=== PATIENT | male | born 1960 | race Caucasian/White ===

== ENCOUNTER 2020-12-22 01:55 | Emergency (ER) | payer OTHER ==
--- OUTSIDE RECORDS SUMMARY | 2020-12-22 01:57 | XMS REPORT | Continuity of Care Document ---
:1960 Author Organization [facility] t Address [address] [place] [address] Care Team Providers Name Role Phone Gamaliel MURRAY Primary Care Physician Problems This patient has no known problems. Allergies, Adverse Reactions, Alerts This patient has no known allergies or adverse reactions. Social History Social Habit Start Date Stop Date Quantity Comments Source Sex Assigned At [birth year] [facility] ethodist 00:00:00 00:00:00 Medications This patient has no known medications. Procedures This patient has no known procedures. Plan of Care Planned Activity Planned Date Details Comments Source Future Scheduled 2021-02-02 INFLUENZA VACCINE [place] [facility] 00:00:00 [code = INFLUENZA VACCINE] Future Scheduled 2008 COLONOSCOPY SCREENING [place] [facility] 00:00:00 [code = COLONOSCOPY SCREENING] Future Scheduled 2008 SHINGLES VACCINES [place] [facility] 00:00:00 (#1) [code = SHINGLES VACCINES (#1)] Future Scheduled 1976 Hepatitis C screening [place] [facility] 00:00:00 (procedure) [code = 886179859] Future Scheduled 1970 COVID-19 VACCINE (1) [facility] 00:00:00 [code = COVID-19 VACCINE (1)] Encounters Start End Encounter Admission Attending Care Care Encounter Source Date/Time Date/Time Type Type Clinicians Facility Department ID 2020-10-16 2020-10-16 Outpatient [facility] [id number] [facility]00 [facility] 2020-09-16 2020-09-16 Outpatient [facility] [id number] [facility]00 [facility] 2020-09-11 2020-09-11 Outpatient [facility] [id number] [facility]00 [facility] Results This patient has no known results.
[2020-12-22 02:45] LABS: Urine Blood Negative (Negative); Urine Glucose Negative (Negative); Urine Protein 1+ (Negative); Urine Specific Gravity >=1.030 (1.005-1.030)
[2020-12-22 03:02] LABS: Basophils % 0.4 % (0-1.3); Hematocrit 45.5 % (39.6-49.0); Lymphocytes % 12.8 % (15.3-44.8); MPV 9.7 fL (7.6-11.3); RBC Red Blood Cell Count 4.73 M/uL (4.33-5.43)
[2020-12-22] MEDS ORDERED: MORPHINE 4 MG/ML SYR ONE ×2 (03:04→03:47)
[2020-12-22] MEDS ORDERED: ONDANSETRON 4 MG/2 ML VIAL ONE (03:05)
[2020-12-22 03:22] LABS: Albumin 4.1 g/dL (3.4-5.0); Bilirubin Direct 0.2 mg/dL (0-0.2); Bilirubin Total 0.5 mg/dL (0.2-1.0); Potassium 4.3 mmol/L (3.5-5.1); Protein, Total 7.9 g/dL (6.4-8.2)
--- NOTE | 2020-12-22 04:42 | ER ---
Nurse's Notes [facility] Name: Ken Mari Age: 60 yrs Sex: Male : 1960 Arrival Date: 12/22/2020 Time: 01:57 Bed 19 Private MD: Zak Alston Diagnosis: Ureterolithiasis, Left Presentation: 12/22 02:17 Chief complaint: Patient states: left sided back pain that started about 2 hours ago, em radiates into abdomen, also reports urinary frequency with only drops coming out, denies blood in urine. Coronavirus screen: Client denies travel out of the [place] in the last 14 days. Ebola Screen: Patient negative for fever greater than or equal to 101.5 degrees Fahrenheit, and additional compatible Ebola Virus Disease symptoms Patient denies exposure to infectious person. Patient denies travel to an Ebola-affected area in the 21 days before illness onset. No symptoms or risks identified at this time. Initial Sepsis Screen: Does the patient meet any 2 criteria? No. Patient's initial sepsis screen is negative. Does the patient have a suspected source of infection? No. Patient's initial sepsis screen is negative. Risk Assessment: Do you want to hurt yourself or someone else? Patient reports no desire to harm self or others. Onset of symptoms was December 22, 2020. 02:17 Method Of Arrival: Ambulatory em 02:17 Acuity: TERA 3 em Triage Assessment: 02:41 General: Behavior is calm, cooperative. Musculoskeletal: No deficits noted. 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 - Social history:: Smoking status: Patient denies any tobacco usage or history of. Screenin:17 Abuse screen: Denies threats or abuse. Nutritional screening: No deficits noted. em Tuberculosis screening: No symptoms or risk factors identified. Fall Risk None identified. Assessment: 02:40 General: Appears in no apparent distress. Pain: Complains of pain in back and abdomen. ak2 Neuro: Level of Consciousness is awake, alert, obeys commands, Oriented to person, place, time. Cardiovascular: No deficits noted. Respiratory: No deficits noted. 03:22 Reassessment: states morphine barely helped, rates pain 9/10, Dr. Arora notified, em received VO to repeat pain medication. 04:03 Reassessment: Patient appears in no apparent distress at this time. Patient and/or em family updated on plan of care and expected duration. Pain level reassessed. Patient is alert, oriented x 3, equal unlabored respirations, skin warm/dry/pink. rates pain 3/10 Patient states feeling better. Patient states symptoms have improved. Vital Signs: 02:17 BP 159 / 99; Pulse 77; Resp 18; Temp 97.2; Pulse Ox 99% on R/A; Weight 120.2 kg; Height em 6 ft. 2 in. (187.96 cm); Pain 8/10; 03:20 BP 149 / 89; Pulse 69; Resp 18; Pulse Ox 97% on R/A; Pain 9/10; em 04:11 BP 147 / 89; Pulse 65; Resp 16; Pulse Ox 95% on R/A; Pain 3/10; em 02:17 Body Mass Index 34.02 (120.20 kg, 187.96 cm) em ED Course: 01:57 Patient arrived in ED. am4 01:58 Zak Alston MD is Private Physician. am4 02:17 Bhargav Crocker, RN is Primary Nurse. em 02:17 Patient has correct armband on for positive identification. Adult w/ patient. Pulse ox em on. NIBP on. 02:18 Kosta Arora MD is Attending Physician. 7 02:19 Triage completed. em 02:19 Arm band placed on. em 02:40 No provider procedures requiring assistance completed. Inserted saline lock: 20 gauge ak2 in right antecubital area, using aseptic technique. 03:35 Stone Protocol In Process Unspecified. EDMS 04:41 Brien Sow MD is Referral Physician. mh7 04:59 IV discontinued, intact, bleeding controlled, No redness/swelling at site. Pressure em dressing applied. Administered Medications: 02:48 Drug: morphine 4 mg Route: IVP; Site: right antecubital; ak2 03:20 Follow up: Response: No adverse reaction; Marked relief of symptoms; RASS: Alert and em Calm (0) 02:48 Drug: Zofran (Ondansetron) 4 mg Route: IVP; Site: right antecubital; ak2 03:20 Follow up: Response: No adverse reaction em 02:49 Drug: NS 0.9% 1000 ml Route: IV; Rate: 1000 ml; Site: right antecubital; ak2 05:00 Follow up: IV Status: Completed infusion; IV Intake: 1000ml em 03:24 Drug: morphine 4 mg Route: IVP; Site: right antecubital; em 04:10 Follow up: Response: No adverse reaction; Marked relief of symptoms; Pain is decreased; em RASS: Alert and Calm (0) 04:58 Drug: TORadol - (ketorolac) 15 mg Route: IVP; Site: right antecubital; em 04:58 Follow up: Response: Medication administered at discharge. em Intake: 05:00 IV: 1000ml; Total: 1000ml. em Outcome: 04:42 Discharge ordered by MD. brown 04:59 Discharged to home ambulatory, with family. em 04:59 Condition: improved 04:59 Discharge instructions given to patient, family, Instructed on discharge instructions, follow up and referral plans. medication usage, Demonstrated understanding of instructions, follow-up care, medications, Prescriptions given X 3. 05:00 Patient left the ED. em Signatures: Dispatcher [employer] Bhargav Montanez RN RN em Holmes, Maurice, MD MD Sarina Duran Anthony ak
--- NOTE | 2020-12-22 04:42 | EDPHYS ---
Physician Documentation [facility] Name: Ken Mari Age: 60 yrs Sex: Male : 1960 Arrival Date: 12/22/2020 Time: 01:57 Bed 19 Private MD: Zak Alston ED Physician Kosta Arora HPI: 12/22 04:02 This 60 yrs old Male presents to ER via Ambulatory with complaints of Back mh7 Pain. 04:02 The patient complains of pain in the left flank. The pain radiates to the left lower mh7 abdomen. Onset: The symptoms/episode began/occurred today. Modifying factors: The symptoms are alleviated by nothing. the symptoms are aggravated by movement, palpation/percussion. 04:03 Associated signs and symptoms: Pertinent positives: urinary frequency, Pertinent mh7 negatives: diarrhea, dizziness, dysuria, fever, headache, hematuria, nausea, pain radiating to the lower extremities, vomiting. Severity of pain: At its worst the pain was moderate today, in the emergency department the pain is unchanged. 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 - Social history:: Smoking status: Patient denies any tobacco usage or history of. ROS: 04:03 Constitutional: Negative for fever, chills, and weight loss, Eyes: Negative for injury, mh7 pain, redness, and discharge, ENT: Negative for injury, pain, and discharge, Neck: Negative for injury, pain, and swelling, Cardiovascular: Negative for chest pain, palpitations, and edema, Respiratory: Negative for shortness of breath, cough, wheezing, and pleuritic chest pain, MS/Extremity: Negative for injury and deformity, Skin: Negative for injury, rash, and discoloration, Neuro: Negative for headache, weakness, numbness, tingling, and seizure, Psych: Negative for depression, anxiety, suicide ideation, homicidal ideation, and hallucinations, Allergy/Immunology: Negative for hives, rash, and allergies, Endocrine: Negative for neck swelling, polydipsia, polyuria, polyphagia, and marked weight changes, Hematologic/Lymphatic: Negative for swollen nodes, abnormal bleeding, and unusual bruising. Exam: 04:04 Head/Face: Normocephalic, atraumatic. Eyes: Pupils equal round and reactive to light, mh7 extra-ocular motions intact. Lids and lashes normal. Conjunctiva and sclera are non-icteric and not injected. Cornea within normal limits. Periorbital areas with no swelling, redness, or edema. Neck: Trachea midline, no thyromegaly or masses palpated, and no cervical lymphadenopathy. Supple, full range of motion without nuchal rigidity, or vertebral point tenderness. No Meningismus. Chest/axilla: Normal chest wall appearance and motion. Nontender with no deformity. No lesions are appreciated. Cardiovascular: Regular rate and rhythm with a normal S1 and S2. No gallops, murmurs, or rubs. Normal PMI, no JVD. No pulse deficits. Respiratory: Lungs have equal breath sounds bilaterally, clear to auscultation and percussion. No rales, rhonchi or wheezes noted. No increased work of breathing, no retractions or nasal flaring. 04:04 Constitutional: The patient appears in no acute distress, alert, uncomfortable. 04:04 Abdomen/GI: Inspection: abdomen appears normal, Bowel sounds: normal, in all quadrants, Palpation: mild abdominal tenderness, in the left lower quadrant, mass, is not appreciated, rebound tenderness, is not appreciated, voluntary guarding, is not appreciated, involuntary guarding, is not appreciated, no appreciated organomegaly, Rectal exam: the exam is deferred, because of patient request, Indicators: McBurney's point is not tender, Bennett's sign is negative, Rovsing's sign is negative, Obturator sign is negative, Psoas sign is negative, Liver: no appreciated palpable abnormalities, Hernia: not appreciated. 04:09 Skin: Warm, dry with normal turgor. Normal color with no rashes, no lesions, and no mh7 evidence of cellulitis. MS/ Extremity: Pulses equal, no cyanosis. Neurovascular intact. Full, normal range of motion. Neuro: Awake and alert, GCS 15, oriented to person, place, time, and situation. Cranial nerves II-XII grossly intact. Motor strength 5/5 in all extremities. Sensory grossly intact. Cerebellar exam normal. Normal gait. Psych: Awake, alert, with orientation to person, place and time. Behavior, mood, and affect are within normal limits. 04:09 Back: normal spinal alignment noted, CVA tenderness, that is mild, is noted on the left, vertebral tenderness, is not appreciated. Vital Signs: 02:17 BP 159 / 99; Pulse 77; Resp 18; Temp 97.2; Pulse Ox 99% on R/A; Weight 120.2 kg; Height em 6 ft. 2 in. (187.96 cm); Pain 8/10; 03:20 BP 149 / 89; Pulse 69; Resp 18; Pulse Ox 97% on R/A; Pain 9/10; em 04:11 BP 147 / 89; Pulse 65; Resp 16; Pulse Ox 95% on R/A; Pain 3/10; em 02:17 Body Mass Index 34.02 (120.20 kg, 187.96 cm) em MDM: 04:40 Differential diagnosis: nephrolithiasis, pyelonephritis, UTI, diverticulitis. Data [facility] reviewed: vital signs, nurses notes, lab test result(s), CBC, electrolytes, urinalysis, radiologic studies, CT scan. Data interpreted: Pulse oximetry: on room air is 95 %. Interpretation: normal. Counseling: I had a detailed discussion with the patient and/or guardian regarding: the historical points, exam findings, and any diagnostic results supporting the discharge/admit diagnosis, the presence of at least one elevated blood pressure reading (>120/80) during this emergency department visit, lab results, radiology results, the need for outpatient follow up, a urologist, to return to the emergency department if symptoms worsen or persist or if there are any questions or concerns that arise at home. Response to treatment: the patient's symptoms have resolved after treatment, the patient's blood pressure is in an acceptable range, mental status has returned to baseline, the patient no longer shows bradycardia, the patient is not short of breath, the patient is not tachycardic, the patient's pain is gone, the patient's temperature has normalized. 04:42 Patient medically screened. mh7 12/22 02:45 Order name: Urine Dipstick-Ancillary; Complete Time: 04:04 EDMS 12/22 02:58 Order name: Basic Metabolic Panel; Complete Time: 04:04 EDMS 12/22 02:55 Order name: Stone Protocol [facility] 12/22 02:58 Order name: Liver (Hepatic) Function; Complete Time: 04:04 [facility] 12/22 02:58 Order name: Lipase; Complete Time: 04:04 [facility] 12/22 02:58 Order name: CBC with Automated Diff; Complete Time: 04:04 [facility] 12/22 02:40 Order name: IV Saline Lock; Complete Time: 02:43 em 12/22 02:40 Order name: Labs collected and sent; Complete Time: 02:43 em 12/22 02:41 Order name: Urine Dipstick-Ancillary (obtain specimen); Complete Time: 02:43 em Administered Medications: 02:48 Drug: morphine 4 mg Route: IVP; Site: right antecubital; ak2 03:20 Follow up: Response: No adverse reaction; Marked relief of symptoms; RASS: Alert and em Calm (0) 02:48 Drug: Zofran (Ondansetron) 4 mg Route: IVP; Site: right antecubital; ak2 03:20 Follow up: Response: No adverse reaction em 02:49 Drug: NS 0.9% 1000 ml Route: IV; Rate: 1000 ml; Site: right antecubital; ak2 05:00 Follow up: IV Status: Completed infusion; IV Intake: 1000ml em 03:24 Drug: morphine 4 mg Route: IVP; Site: right antecubital; em 04:10 Follow up: Response: No adverse reaction; Marked relief of symptoms; Pain is decreased; em RASS: Alert and Calm (0) 04:58 Drug: TORadol - (ketorolac) 15 mg Route: IVP; Site: right antecubital; em 04:58 Follow up: Response: Medication administered at discharge. em Disposition: 12/22/20 04:42 Discharged to Home. Impression: Ureterolithiasis, Left. - Condition is Stable. - Discharge Instructions: Kidney Stones, [id number]. - Prescriptions for Flomax 0.4 mg Oral Capsule, Sust. Release 24 hr - take 1 capsule by ORAL route once daily 1/2 hour following the same meal each day; 30 capsule. Cipro 500 mg Oral Tablet - take 1 tablet by ORAL route every 12 hours for 7 days; 14 tablet. ketorolac 10 mg Oral tablet - take 1 tablet by ORAL route every 8 hours As needed not to exceed 40 mg in 24hrs; 12 tablet. - Medication Reconciliation Form, Thank You Letter, Antibiotic Education, Prescription Opioid Use form. - Follow up: Private Physician; When: 1 - 2 days; Reason: Worsening of condition, Recheck today's complaints, Continuance of care, Re-evaluation by your physician. Follow up: Brien Sow MD; When: 1 - 2 days; Reason: Worsening of condition, Recheck today's complaints. - Problem is new. - Symptoms have improved. Signatures: Dispatcher [employer] Bhargav Montanez, RN RN em Kosta Arora MD MD mh7 Waqas Nelson ak2 Corrections: (The following items were deleted from the chart) 05:00 04:42 12/22/2020 04:42 Discharged to Home. Impression: Ureterolithiasis, Left. em Condition is Stable. Forms are Medication Reconciliation Form, Thank You Letter, Antibiotic Education, Prescription Opioid Use. Follow up: Private Physician; When: 1 - 2 days; Reason: Worsening of condition, Recheck today's complaints, Continuance of care, Re-evaluation by your physician. Follow up: Brien Sow; When: 1 - 2 days; Reason: Worsening of condition, Recheck today's complaints. Problem is new. Symptoms have improved. mh7
[2020-12-22] MEDS ORDERED: KETOROLAC 30 MG/ML INJ ONE (05:13)
[2020-12-22 05:15] VITALS: TEMP 97.2
[2020-12-22 05:19] VITALS: BP 147/89; O2SAT 95
--- NOTE | 2020-12-23 10:32 | RAD REPORT ---
EXAM DESCRIPTION: CT - Stone Protocol - 12/22/2020 6:39 am CLINICAL HISTORY: The patient is 60 years old and is Male; left back pain TECHNIQUE: Axial computed tomography images of the abdomen and pelvis without intravenous contrast. Sagittal and coronal reformatted images were created and reviewed. This CT exam was performed usi ng one or more of the following dose reduction techniques: automated exposure control, adjustment o f the mA and/or kV according to patient size, and/or use of iterative reconstruction technique. COMPARISON: No relevant prior studies available. FINDINGS: Lung bases: Unremarkable. No mass. No consolidation. ABDOMEN: Liver: Simple cysts in the liver measuring up to 2.5 cm on the left. Gallbladder and bile ducts: Unremarkable. No calcified stones. No ductal dilation. Pancreas: Unremarkable. No ductal dilation. Spleen: Unremarkable. No splenomegaly. Adrenals: Unremarkable. No mass. Kidneys and ureters: 4.5 mm stone in the bladder near the left UVJ. Moderate left perinephric str anding. Mild left hydroureteronephrosis and periureteral stranding. Multiple simple cysts in the right kidney. ACR White Paper guidelines (Herts, et al. JACR 201 8; 15(2):264-273) suggest no follow-up is necessary. Stomach and bowel: Colonic diverticulosis. No obstruction. No mucosal thickening. PELVIS: Appendix: The appendix is normal. Bladder: The bladder is decompressed. No stones. Reproductive: Unremarkable as visualized. ABDOMEN and PELVIS: Intraperitoneal space: Unremarkable. No free air. No significant fluid collection. Bones/joints: Scoliosis with posterior last and screw fixation of the thoracolumbar spine and pelv is. There is associated artifact limiting evaluation. No acute fracture. No dislocation. Soft tissues: Unremarkable. Vasculature: Unremarkable. No abdominal aortic aneurysm. Lymph nodes: Unremarkable. No enlarged lymph nodes. IMPRESSION: 1. 4.5 mm stone in the bladder near the left UVJ. Moderate left perinephric stranding. Mild left hydroureteronephrosis and periureteral stranding. 2. Colonic diverticulosis. Electronically signed by: Nitin Garland MD 12/22/2020 4:29 AM CDT Due to temporary technical issues with the PACS/Fluency reporting system, reports are being signed by the in house radiologists without review as a courtesy to insure prompt reporting. The interpreting radiologist is fully responsible for the content of the report.
== END 2020-12-22 05:00 | disposition home or self-care (01) ==
LOC: ER 01:55
DX: N20.1 Calculus of ureter (principal); I10 Essential (primary) hypertension
CPT/HCPCS: 85025; 80048; 36415; 80076; 81003; 83690; 76377; 74176; J2405

== ENCOUNTER 2022-05-19 08:15 | Day surgery (SDC) | payer OTHER, SELFPAY ==
--- NOTE | 2022-05-01 14:28 | RAD REPORT ---
EXAM DESCRIPTION: RAD - Chest Single View - 05/01/2022 2:21 pm CLINICAL HISTORY: PREOP COMPARISON: No comparisons FINDINGS: Lines: None. Lungs: No evidence of edema or pneumonia. Pleural: No significant pleural effusions or pneumothorax. Cardiac: The heart size is within normal limits. Mediastinum: Within normal limits. Bones: No acute fractures. Thoracolumbar fusion hardware Other: None IMPRESSION: No acute cardiopulmonary disease.
[2022-05-01 14:43] LABS: Absolute Lymphocytes (CBC) 2.2 K/uL (0.7-4.9); Hematocrit 44.4 % (39.6-49.0); Lymphocytes % 38.8 % (15.3-44.8); MPV 8.3 fL (7.6-11.3); Protime INR 0.97; RBC Red Blood Cell Count 4.57 M/uL (4.33-5.43)
[2022-05-01 15:03] LABS: Potassium 4.4 mmol/L (3.5-5.1)
--- NOTE | 2022-05-04 16:07 | EKG ---
Test Date: 2022-05-01 Test Time: 14:33:49 Studio Director: MIGUEL MEASUREMENT RESULTS: Intervals: Rate: 63 [place]: 166 QRSD: 176 QT: 514 QTc: 525 [place]: P: 26 [place]: 166 QRS: 13 T: 138 INTERPRETIVE STATEMENTS: Normal sinus rhythm Left bundle branch block Abnormal ECG Compared to ECG 05/01/2022 14:33:17 Ventricular premature complex(es) no longer present Electronically Signed On 05-04-22 16:00:28 CDT by Denton Blankenship
--- NOTE | 2022-05-04 16:07 | EKG ---
Test Date: 2022-05-01 Test Time: 14:33:17 Garden Machinery Mechanic: MIGUEL MEASUREMENT RESULTS: Intervals: Rate: 64 [place]: 172 QRSD: 172 QT: 512 QTc: 528 [place]: P: 46 [place]: 172 QRS: 12 T: 107 INTERPRETIVE STATEMENTS: Sinus rhythm with occasional premature ventricular complexes Left bundle branch block Abnormal ECG No previous ECG available for comparison Electronically Signed On 05-04-22 16:00:34 CDT by Denton Blankenship
[~2022-05-19 08:15] MED LIST: AMPICILLIN SODIUM 2 GM in NA CHLORIDE 0.9% 100 ML IVPB SCH; Gentamicin Inj 240 MG in NA CHLORIDE 0.9% 100 ML IVPB SCH
[2022-05-19] MEDS ORDERED: Ringers Lactate 1,000 ML IV ONE ×2 (08:38→12:44)
[2022-05-19] MEDS ORDERED: AMPICILLIN SODIUM 2 GM/VIAL VIAL ONE (08:38)
[2022-05-19] MEDS ORDERED: MIDAZOLAM HCL 2 MG/2 ML INJ ONE (10:46)
[2022-05-19] MEDS ORDERED: FENTANYL CITR 100 MCG/2 ML ONE ×2 (10:46→12:49)
[2022-05-19] MEDS ORDERED: LIDOCAINE 1% MPF 5 ML VIAL ONE (10:46)
[2022-05-19] MEDS ORDERED: propofoL 200 MG/20 ML VIAL IV ONE (10:46)
[2022-05-19] MEDS ORDERED: ONDANSETRON 4 MG/2 ML VIAL ONE (10:47)
[2022-05-19] MEDS ORDERED: PHENAZOPYRIDINE 100MG TAB PO ONE ×2 (11:07→15:17)
[2022-05-19] MEDS ORDERED: CODEINE 30MG/APAP 300MG TAB PO PRN (11:07)
[2022-05-19] MEDS ORDERED: KETOROLAC 30 MG/ML INJ ONE (13:08)
[2022-05-19] MEDS: MEPERIDINE HCL 25 MG/ML SYR ONE ×2 (13:42→13:47)
[2022-05-19 14:31] VITALS: O2SAT 96
[2022-05-19 15:14] VITALS: BP 143/78; TEMP 96.9
[2022-05-19] MEDS ORDERED: CODEINE 30MG/APAP 300MG TAB ONE (15:17)
--- NOTE | 2022-05-19 18:39 | OP ---
Surgeon: SU JONES Preoperative Diagnoses: 1.Bladder calculus. 2.BPH/enlarged prostate with lower urinary tract obstructive symptoms. Postoperative Diagnoses: 1.Bladder calculus. 2.BPH/enlarged prostate with lower urinary tract obstructive symptoms. Principal Procedures: 1.Cystoscopy with removal of bladder calculus, approximately 8 mm. 2.Bipolar transurethral resection of the prostate. Indication For Procedure: Mr. Mari presented to [facility] with obstructive urinary symptoms an d an elevated PSA. He underwent a prostate biopsy, which was unremarkable for malignancy, but reveal ed the presence of a 90 g gland. He also underwent cystoscopic evaluation because of hematuria and w as found to have a bladder calculus. He was counseled on options for management to include the need for removal of the bladder calculus as well as recommendations for management of his prostatic urethr al obstruction. He agreed to proceed with bipolar TURP. He had an intravesically projecting median lobe that abutted the trigone and given the size of his prostate, I did not feel he would be best ser andi with the [facility]. Procedure In Detail: The patient was consented in the preoperative holding area before being transfe rred to operative suite where general anesthesia was induced. He was given ampicillin 2 g and gentam icin 2-3 mg/kg IV antimicrobial prophylaxis and pneumo boots were provided for DVT prophylaxis. He w as placed in the lithotomy position, padded and secured to the table appropriately and his genitalia were prepped with Hibiclens and draped in standard fashion. The case was begun using urethral sounds to dilate the meatus and fossa navicularis to 30-Malian. Then using the 26-Malian resectoscope, the urethra was traversed and his bladder entered. As had been previously observed, there was a signifi cant intravesical projection of the median lobe along with significant lateral lobe hypertrophy and t hen extended prostatic urethral length likely 4 cm or more in length. As a result, I began by identi fying the bladder calculus previously observed and was able to remove it directly via the 26-Malian r esectoscope sheath. This was sent for pathologic analysis. I then turned my attention to bipolar re section. Using the bipolar loop, I began by identifying the ureteral orifices and resecting the medi an lobe that was abutting the ureteral orifices on each side down to the level of the bladder neck. The intervening tissue was similarly resected until the entire intravesical projection component of t he median lobe was removed. I then continued the resection of the median bar down to the level of th e verumontanum before extending that resection to the left lateral lobe of the prostate. Because of the extended prostatic urethral length, this resection was performed at the bladder neck initially an d taken anteriorly. Then, the midportion of the prostate was resected to the anterior in the left la teral lobe before I finally resected the apical lateral lobar hypertrophy that was kissing and interd igitating in the midline. Similar resection was performed on the right side of his prostate until a nice channel was observed from the verumontanum and through to the bladder neck. Continued resection was performed as tissue fell in and intruded into the urethral lumen with resection of the lateral l obar tissue until eventually the prostatic fossa was stable and open even with the bladder completely decompressed. At multiple points along the way, I decompressed his bladder of fluid and urine and r emoved the prostate chips using an Ellik evacuator where necessary. Fulguration was performed at mul tiple steps along the way due to very active and aggressive bleeding vessels encountered. In the end , once completely resected and patent, I ensured complete hemostasis throughout the prostatic fossa a nd at the bladder neck with the bladder completely decompressed and no fluid inflow active. Once com pletely hemostatic with no prostate chips within the bladder, I then refilled his bladder and removed the scope. I then passed a 24-Malian 3-way Rodriguez catheter into his bladder with ease and put 30 cc of sterile water in the balloon. The patient was taken out of the lithotomy position and the cathete r was placed to moderate traction. Slow drip CBI was initiated and the fluid efflux was completely c lear. He was then awakened from general anesthesia before being transferred to a stretcher and then transferred to the recovery room in good condition. Complications: None. Discharge Disposition: He may follow up on Wednesday for urethral catheter removal and voiding trial. He was given a prescription for Bactrim Double Strength tablets for 5 days as well as Tylenol with Co deine for pain management. Subsequent followup should be established in about 3 months and 3 months after that, we will plan repeat PSA and followup of his previous elevated PSA. SHERYL/VIOLA Voice ID: [id number] Report ID: [id number]
== END 2022-05-19 16:07 | disposition home or self-care (01) ==
LOC: OR 08:15
PROVIDERS: ATTEND Urology
PROC: 0VT08ZZ Resection of Prostate, Via Natural or Artificial Opening Endoscopic (ICD-10-PCS; 2022-05-19)
PROC: 0TCB8ZZ Extirpation of Matter from Bladder, Via Natural or Artificial Opening Endoscopic (ICD-10-PCS; principal; 2022-05-19 09:45)
DX: N21.0 Calculus in bladder (principal); N40.1 Benign prostatic hyperplasia with lower urinary tract symptoms; N13.8 Other obstructive and reflux uropathy; I10 Essential (primary) hypertension; G62.9 Polyneuropathy, unspecified
CPT/HCPCS: 93005 ×2; 87088; 85025; 87086; 80048; 36415; 85610; 88300; 88305; 82360; 71045; 52310; 52601; J2704; J2001; J1580; J2250; J3010 ×2; J2175; J7120 ×2; J2405; J0290